=== PATIENT | female | born 1980 | race Caucasian/White ===

== ENCOUNTER 2016-05-25 03:56 | Emergency (ER) | payer MEDICARE, OTHER ==
--- NOTE | 2016-06-01 07:39 | ER ---
ADMIT: 05/25/2016 RM/LOC: ER [facility] MR#: [id number] [address] [id number] MICHAELCHIQUIS Ibrahim Lisa [address] [place] [address] Emergency Room Report SEX: F AGE: 36 : 1980 DATE: 05/25/2016 ADDENDUM: A 36-year-old female, comes in with complaints of some body aches, nausea, and 3 episodes of vomiting. These symptoms all began a few hours ago. She does have a kid at home who has similar symptoms. She is nontoxic appearing, abdomen is nontender. She is not dehydrated. She was given Zofran here. Discharged home with Phenergan to be used as needed, to encourage fluid intake, to use Tylenol for body aches and to follow up with her regular physician if not improving later next week. Koko Carpenter MD/ [place] JOB #: [id number] CC: Koko Carpenter MD, Attending Physician Daryn Prather MD, Family Physician
== END 2016-05-25 04:45 | disposition home or self-care (01) ==
LOC: ER 03:56
DX: R11.2 Nausea with vomiting, unspecified (principal); Z98.890 Other specified postprocedural states